=== PATIENT | female | born 1980 | race Hispanic/Latino ===

== ENCOUNTER 2017-10-09 11:58 | Emergency (ER) | payer BC ==
[2017-10-09] MEDS ORDERED: ONDANSETRON ODT 4 MG TAB ONE (13:04)
[2017-10-09] MEDS ORDERED: DICYCLOMINE HCL 10 MG/ML 2ML AMP IM ONE (13:04)
== END 2017-10-09 15:18 | disposition home or self-care (01) ==
LOC: EDH 11:58
DX: R19.7 Diarrhea, unspecified (principal); I10 Essential (primary) hypertension; M19.90 Unspecified osteoarthritis, unspecified site; Z88.8 Allergy status to other drugs, medicaments and biological substances
CPT/HCPCS: 74176; 96372; 99284; J0500

== ENCOUNTER → 2017-11-13 | Outpatient (CLI) | payer BC | END | disposition home or self-care (01) | LOC: RAH 07:54 | PROVIDERS: ATTEND Internal Medicine Gastroenterology | DX: R94.5 Abnormal results of liver function studies (principal) | CPT/HCPCS: 76700 ==

== ENCOUNTER → 2017-12-31 | Outpatient (CLI) | payer BC | END | disposition home or self-care (01) | LOC: RAH 09:47 | PROVIDERS: ATTEND Orthopaedic Surgery | DX: S83.281A Other tear of lateral meniscus, current injury, right knee, initial encounter (principal); S83.241A Other tear of medial meniscus, current injury, right knee, initial encounter; X58.XXXA Exposure to other specified factors, initial encounter; Y93.89 Activity, other specified; Y92.89 Other specified places as the place of occurrence of the external cause; Y99.8 Other external cause status | CPT/HCPCS: 73721 ==

== ENCOUNTER → 2018-01-04 | Outpatient (CLI) | payer BC | END | disposition home or self-care (01) | LOC: RAH 07:59 | PROVIDERS: ATTEND Orthopaedic Surgery | DX: S83.242A Other tear of medial meniscus, current injury, left knee, initial encounter (principal); X58.XXXA Exposure to other specified factors, initial encounter; Y93.89 Activity, other specified; Y92.89 Other specified places as the place of occurrence of the external cause; Y99.8 Other external cause status | CPT/HCPCS: 73721 ==

== ENCOUNTER → 2018-04-26 | Outpatient (CLI) | payer BC | END | disposition home or self-care (01) | LOC: RAH 13:10 | PROVIDERS: ATTEND Otolaryngology Plastic Surgery within the Head & Neck | DX: E04.2 Nontoxic multinodular goiter (principal); I10 Essential (primary) hypertension; E78.5 Hyperlipidemia, unspecified | CPT/HCPCS: 76536 ==

== ENCOUNTER 2018-07-30 20:09 | Inpatient (IN) | payer BC | END 2018-08-03 12:45 | disposition home or self-care (01) | LOC: EDH 20:09 → EDHIP 22:51 → 3BH 07-31 21:43 | DX: R07.89 Other chest pain (principal); K76.0 Fatty (change of) liver, not elsewhere classified; R09.1 Pleurisy; M45.9 Ankylosing spondylitis of unspecified sites in spine; M19.90 Unspecified osteoarthritis, unspecified site; F32.9 Major depressive disorder, single episode, unspecified; F41.9 Anxiety disorder, unspecified ==

== ENCOUNTER → 2019-03-18 | Outpatient (CLI) | payer BC ==
[~2019-03-18] MED LIST: GADODIAMIDE 10 MMOL/20 ML VIAL IV ONE; LIFI1DRO OU; TOPI25CA13 PO
== END | disposition home or self-care (01) ==
LOC: RAH 11:01
PROVIDERS: ATTEND Internal Medicine Gastroenterology
DX: D18.09 Hemangioma of other sites (principal); D18.1 Lymphangioma, any site; Z90.49 Acquired absence of other specified parts of digestive tract
CPT/HCPCS: 74183; A9579

== ENCOUNTER → 2019-09-15 | Outpatient (CLI) | payer BC ==
[~2019-09-15] MED LIST changes: -GADODIAMIDE 10 MMOL/20 ML VIAL IV ONE
== END | disposition home or self-care (01) ==
LOC: RAH 13:52
PROVIDERS: ATTEND Internal Medicine Gastroenterology
DX: D73.4 Cyst of spleen (principal); Z90.49 Acquired absence of other specified parts of digestive tract
CPT/HCPCS: 76700

== ENCOUNTER 2020-11-19 08:24 | Day surgery (SDC) | payer BC ==
[2020-11-12 14:51] LABS: BASOPHILS % (AUTO) 0.5 % (0.0-5.0); EOSINOPHILS % (AUTO) 2.3 % (0.0-8.0); HEMATOCRIT 41.3 % (36-48); LYMPHOCYTES % (AUTO) 32.9 % (21.0-51.0); MEAN CORPUSCULAR HEMOGLOBIN 28.9 pg (27.0-33.0); MEAN CORPUSCULAR HGB CONC 33.9 g/dL (32.0-36.0); MEAN CORPUSCULAR VOLUME 85.2 fL (79-99); MONOCYTES % (AUTO) 6.7 % (3.0-13.0); NEUTROPHILS % (AUTO) 57.3 % (40.0-77.0); PLATELET COUNT (AUTO) 237 K/uL (130-400); RED BLOOD CELL COUNT(AUTO) 4.85 MIL/uL (4.00-5.50); RED CELL DISTRIBUTION WIDTH 13.1 % (11.0-15.5); WHITE BLOOD COUNT (AUTO) 6.6 K/uL (4.8-10.8)
[2020-11-12 14:58] LABS: CREATININE 0.8 mg/dL (0.5-1.5); POTASSIUM 3.5 mmol/L (3.5-5.1)
[2020-11-18 14:58] VITALS: BP 136/79
[2020-11-19] VITALS (16 sets, daily range): BP systolic 105–128; BP diastolic 51–81
[~2020-11-19] VITALS: Ht 157.5 cm; Wt 70.7 kg
[~2020-11-19 08:24] MED LIST changes: +CEFAZOLIN SODIUM 1 GM VIAL IVP SCH; -LIFI1DRO OU; +SODIUM CHLORIDE 0.9% 500ML 500 ML IV SCH; -TOPI25CA13 PO
[2020-11-19] MEDS ORDERED: BUPIVACAINE/PF 0.5% 30ML VIAL ONE (08:55)
[2020-11-19] MEDS ORDERED: LIDOCAINE PF 2% 5ML ABBOJECT ONE (09:05)
[2020-11-19] MEDS ORDERED: ROCURONIUM 10MG/1ML SYR 10 MG/ML ML ONE (09:06)
[2020-11-19] MEDS ORDERED: MIDAZOLAM HCL 1 MG/ML 2ML VIAL ONE (09:06)
[2020-11-19] MEDS ORDERED: PROPOFOL 10 MG/ML 20ML VIAL IV ONE (09:06)
[2020-11-19] MEDS ORDERED: LACTATED RINGERS 1000ML 1,000 ML IV ONE (09:07)
[2020-11-19] MEDS ORDERED: CLINDAMYCIN 600 MG/D5% WATER 50 ML IV ONE (09:11)
[2020-11-19] MEDS ORDERED: FENTANYL CITRATE PF 50 MCG/1 ML 2ML VIAL ONE (09:17)
[2020-11-19] MEDS ORDERED: ONDANSETRON HCL 4 MG/2 ML VIAL ONE (09:45)
[2020-11-19] MEDS ORDERED: NEOSTIGMINE 5MG/5ML SYR IV ONE (09:45)
[2020-11-19] MEDS ORDERED: PHENYLEPHRINE HCL 10 MG/ML 1ML VIAL IV ONE (09:45)
[2020-11-19] MEDS ORDERED: GLYCOPYRROLATE 1 MG/5 ML SYRINGE ONE (09:45)
== END 2020-11-19 12:15 | disposition home or self-care (01) ==
LOC: DAH 08:24
PROVIDERS: ATTEND Surgery
DX: R10.31 Right lower quadrant pain (principal); Z20.822 Contact with and (suspected) exposure to COVID-19; N73.6 Female pelvic peritoneal adhesions (postinfective); M79.7 Fibromyalgia; Z98.51 Tubal ligation status; Z98.890 Other specified postprocedural states; Z90.49 Acquired absence of other specified parts of digestive tract; Z90.710 Acquired absence of both cervix and uterus; Z83.3 Family history of diabetes mellitus; Z82.49 Family history of ischemic heart disease and other diseases of the circulatory system; Z82.3 Family history of stroke; Z79.899 Other long term (current) drug therapy
CPT/HCPCS: 44970; 49329; S2900; 36415; 80048; 85025; 93005; A4344; C9803; J2001; J2250; J2370; J2405; J2704; J2710; J3010; J3490; J7030; J7120; U0003

== ENCOUNTER → 2021-03-11 | Outpatient (CLI) | payer BC | END | disposition home or self-care (01) | LOC: RAH 12:43 | PROVIDERS: ATTEND Internal Medicine | DX: S90.122A Contusion of left lesser toe(s) without damage to nail, initial encounter (principal); X58.XXXA Exposure to other specified factors, initial encounter; Y93.89 Activity, other specified; Y92.89 Other specified places as the place of occurrence of the external cause; Y99.8 Other external cause status | CPT/HCPCS: 73660 ==

== ENCOUNTER 2021-10-29 09:23 | Emergency (ER) | payer BC ==
[~2021-10-29] VITALS: Ht 157.5 cm; Wt 76.2 kg
[2021-10-29 11:00] VITALS: BP 134/74
== END 2021-10-29 11:01 | disposition home or self-care (01) ==
LOC: EDH 09:23
DX: S63.502A Unspecified sprain of left wrist, initial encounter (principal); M67.432 Ganglion, left wrist; Z88.6 Allergy status to analgesic agent; Z90.49 Acquired absence of other specified parts of digestive tract; X58.XXXA Exposure to other specified factors, initial encounter; Y93.89 Activity, other specified; Y92.89 Other specified places as the place of occurrence of the external cause; Y99.8 Other external cause status
CPT/HCPCS: 73110

== ENCOUNTER → 2022-08-29 | Outpatient (CLI) | payer BC ==
[2022-08-29 09:42] LABS: CREATININE 0.7 mg/dL (0.5-1.5)
== END | disposition home or self-care (01) ==
LOC: LAB 08:24
PROVIDERS: ATTEND Internal Medicine Gastroenterology
DX: R10.9 Unspecified abdominal pain (principal)
CPT/HCPCS: 36415; 82565; 84520

== ENCOUNTER → 2022-08-31 | Outpatient (CLI) | payer BC ==
[~2022-08-31] MED LIST changes: -CEFAZOLIN SODIUM 1 GM VIAL IVP SCH; +IOHEXOL 350 MG/ML 100ML INFUS..BTL IV ONE; -SODIUM CHLORIDE 0.9% 500ML 500 ML IV SCH
== END | disposition home or self-care (01) ==
LOC: RAH 09:37
PROVIDERS: ATTEND Internal Medicine Gastroenterology
DX: M47.815 Spondylosis without myelopathy or radiculopathy, thoracolumbar region (principal); I25.10 Atherosclerotic heart disease of native coronary artery without angina pectoris; R10.9 Unspecified abdominal pain
CPT/HCPCS: 74178; Q9967

== ENCOUNTER 2023-04-08 18:31 | Emergency (ER) | payer BC ==
[~2023-04-08] VITALS: Ht 157.5 cm; Wt 77.1 kg
[2023-04-08 18:32] VITALS: BP 162/110; PULSE 86; RESP 20
[2023-04-08 19:09] LABS: BASOPHILS # (AUTO) 0.02 K/uL (0.00-0.20); BASOPHILS % (AUTO) 0.3 % (0.0-5.0); EOSINOPHILS # (AUTO) 0.17 K/uL (0.00-0.70); EOSINOPHILS % (AUTO) 2.7 % (0.0-8.0); HEMATOCRIT 40.1 % (36-48); IMMATURE GRANULOCYTE ABSOLUTE 0.02 K/uL (0-1); LYMPHOCYTES # (AUTO) 2.7 K/uL (1.0-4.8); LYMPHOCYTES % (AUTO) 42.1 % (21.0-51.0); MEAN CORPUSCULAR HEMOGLOBIN 28.6 pg (27.0-33.0); MEAN CORPUSCULAR HGB CONC 34.2 g/dL (32.0-36.0); MEAN CORPUSCULAR VOLUME 83.7 fL (79-99); MONOCYTES # (AUTO) 0.5 K/uL (0.1-1.0); MONOCYTES % (AUTO) 8.2 % (3.0-13.0); NEUTROPHILS # (AUTO) 2.9 K/uL (1.8-7.7); NEUTROPHILS % (AUTO) 46.4 % (40.0-77.0); PLATELET COUNT (AUTO) 231 K/uL (130-400); RED BLOOD CELL COUNT(AUTO) 4.79 MIL/uL (4.00-5.50); RED CELL DISTRIBUTION WIDTH 12.4 % (11.0-15.5); WHITE BLOOD COUNT (AUTO) 6.3 K/uL (4.8-10.8)
[2023-04-08 19:22] LABS: CREATININE 0.8 mg/dL (0.5-1.5); POTASSIUM 3.4 mmol/L (3.5-5.1)
[2023-04-08 19:26] LABS: BILIRUBIN,TOTAL 0.3 mg/dL (0.2-1.0); TOTAL PROTEIN, SERUM 7.5 g/dL (6.0-8.3)
[2023-04-08 19:42] LABS: APPEARANCE,URINE CLEAR (CLEAR); BILIRUBIN,URINE NEGATIVE (NEGATIVE); COLOR,URINE LIGHT-YELLOW (YELLOW); GLUCOSE, URINE (UA) NEGATIVE (NEGATIVE); KETONES,URINE NEGATIVE (NEGATIVE); LEUKOCYTE ESTERASE ,URINE NEGATIVE Leu/uL (NEGATIVE); NITRATE,URINE NEGATIVE (NEGATIVE); OCCULT BLOOD,URINE NEGATIVE (NEGATIVE); PROTEIN,URINE NEGATIVE (NEGATIVE); UROBILINOGEN,URINE 0.2 mg/dL (0.2-1.0)
[2023-04-08 19:47] LABS: ADD UA MICROSCOPIC NO
[2023-04-08] MEDS ORDERED: KCL 20 MEQ ERTAB PO ONE (20:00)
[2023-04-08] MEDS ORDERED: LIDOCAINE HCL 2% VISCOUS 15 ML UDCUP PO ONE (20:30)
[2023-04-08] MEDS ORDERED: MAG/ALUM/SIMETH 30 ML UDCUP PO ONE (20:30)
[2023-04-08] MEDS ORDERED: ACETAMINOPHEN 325 MG TAB PO ONE (20:30)
[2023-04-08] MEDS ORDERED: OMEP40CA21 PO (21:50)
[2023-04-08] MEDS ORDERED: DICY10 PO (21:50)
== END 2023-04-08 22:32 | disposition home or self-care (01) ==
LOC: EDH 18:31
DX: R10.12 Left upper quadrant pain (principal); Z90.49 Acquired absence of other specified parts of digestive tract; Z90.710 Acquired absence of both cervix and uterus; Z88.8 Allergy status to other drugs, medicaments and biological substances
CPT/HCPCS: 36415; 71046; 80053; 81003; 83690; 85025; 93005

== ENCOUNTER 2023-11-28 18:03 | Emergency (ER) | payer BC ==
[~2023-11-28] VITALS: Ht 157.5 cm; Wt 77.1 kg
[~2023-11-28 18:03] MED LIST changes: +DICY10 PO; -IOHEXOL 350 MG/ML 100ML INFUS..BTL IV ONE; +OMEP40CA21 PO
[2023-11-28 19:14] LABS: CREATININE 0.7 mg/dL (0.5-1.0); POTASSIUM 3.5 mmol/L (3.5-5.1)
[2023-11-28 19:17] LABS: BASOPHILS # (AUTO) 0.02 K/uL (0.00-0.20); BASOPHILS % (AUTO) 0.3 % (0.0-5.0); EOSINOPHILS # (AUTO) 0.17 K/uL (0.00-0.70); EOSINOPHILS % (AUTO) 2.4 % (0.0-8.0); HEMATOCRIT 41.6 % (36-48); IMMATURE GRANULOCYTE ABSOLUTE 0.01 K/uL (0-1); LYMPHOCYTES # (AUTO) 2.6 K/uL (1.0-4.8); MEAN CORPUSCULAR HEMOGLOBIN 29.7 pg (27.0-33.0); MEAN CORPUSCULAR HGB CONC 34.4 g/dL (32.0-36.0); MEAN CORPUSCULAR VOLUME 86.3 fL (79-99); MONOCYTES # (AUTO) 0.6 K/uL (0.1-1.0); MONOCYTES % (AUTO) 7.6 % (3.0-13.0); NEUTROPHILS # (AUTO) 3.9 K/uL (1.8-7.7); NEUTROPHILS % (AUTO) 53.6 % (40.0-77.0); PLATELET COUNT (AUTO) 230 K/uL (130-400); RED BLOOD CELL COUNT(AUTO) 4.82 MIL/uL (4.00-5.50); RED CELL DISTRIBUTION WIDTH 12.8 % (11.0-15.5); WHITE BLOOD COUNT (AUTO) 7.2 K/uL (4.8-10.8)
[2023-11-28 19:19] LABS: ALBUMIN 3.9 g/dL (3.5-5.0); BILIRUBIN,TOTAL 0.4 mg/dL (0.2-1.0); TOTAL PROTEIN, SERUM 7.8 g/dL (6.0-8.3)
[2023-11-28] MEDS: AMLODIPINE 5 MG TAB PO ONE (21:27)
[2023-11-28] MEDS: ONDANSETRON ODT 4MG TAB SL ONE (21:45)
[2023-11-28] MEDS: KETOROLAC 60 MG VIAL (30MG/ML) IM ONE (22:52)
[2023-11-28] MEDS: SUMATRIPTAN SUCCINATE 6 MG/VIAL 0.5ML SQ SCH (22:52)
[2023-11-28] MEDS: ALPRAZOLAM 0.25 MG TABLET PO ONE (22:52)
[2023-11-28 23:42] VITALS: BP 138/100; PULSE 70; RESP 18; O2SAT 100
== END 2023-11-29 00:47 | disposition home or self-care (01) ==
LOC: EDH 18:03
DX: G43.909 Migraine, unspecified, not intractable, without status migrainosus (principal); M79.7 Fibromyalgia; Z79.899 Other long term (current) drug therapy; Z88.6 Allergy status to analgesic agent; Z90.49 Acquired absence of other specified parts of digestive tract; Z90.710 Acquired absence of both cervix and uterus
CPT/HCPCS: 99284; 96374; 70450; 71045; 84484; 80053; 85025; 36415; 93005; J3030; J1885

== ENCOUNTER → 2024-02-25 | Outpatient (CLI) | payer BC | END | disposition home or self-care (01) | LOC: RAH 14:33 | PROVIDERS: ATTEND Internal Medicine | DX: Z01.818 Encounter for other preprocedural examination (principal) | CPT/HCPCS: 71045 ==

== ENCOUNTER 2024-03-05 06:55 | Day surgery (SDC) | payer BC ==
[2024-03-04 09:03] VITALS: BP 160/80; PULSE 67; RESP 18
[2024-03-04 09:20] LABS: ALBUMIN 3.9 g/dL (3.5-5.0); BILIRUBIN,TOTAL 0.4 mg/dL (0.2-1.0); CREATININE 0.8 mg/dL (0.5-1.0); POTASSIUM 4.7 mmol/L (3.5-5.1); TOTAL PROTEIN, SERUM 7.7 g/dL (6.0-8.3)
[2024-03-05] VITALS (21 sets, daily range): BP systolic 117–150; BP diastolic 63–91; PULSE 71–88; RESP 9–20
[~2024-03-05] VITALS: Ht 157.5 cm; Wt 79.1 kg
[~2024-03-05 06:55] MED LIST changes: -DICY10 PO; +LOSA25TA41 PO; +NADO20TA3 PO; -OMEP40CA21 PO
[2024-03-05] MEDS ORDERED: GLYCOPYRROLATE 0.2 MG/ML 5 ML VIAL ONE (07:32)
[2024-03-05] MEDS ORDERED: dexaMETHasone SOD PHOSPHATE 10MG/ML 1ML VIAL ONE (07:32)
[2024-03-05] MEDS ORDERED: MIDAZOLAM HCL 1 MG/ML 2ML VIAL ONE (07:32)
[2024-03-05] MEDS ORDERED: LIDOCAINE PF 100MG/5ML (2%) SYRINGE 5ML ONE (07:32)
[2024-03-05] MEDS ORDERED: SUCCINYLCHOLINE CHLORIDE 20 MG/ML 10 ML VIAL ONE (07:32)
[2024-03-05] MEDS ORDERED: ONDANSETRON 4MG INJ ONE (07:32)
[2024-03-05] MEDS ORDERED: proPOFol 10 MG/ML 20ML VIAL IV ONE ×2 (07:32→08:13)
[2024-03-05] MEDS ORDERED: NEOSTIGMINE METHYLSULFATE 1MG/ML IV ONE (07:32)
[2024-03-05] MEDS ORDERED: rocuRONium bROMide 10MG/1ML 5ML VL ONE ×2 (07:33→09:09)
[2024-03-05] MEDS ORDERED: FENTanyl CITRate PF 50 MCG/1 ML 2ML VIAL ONE (07:33)
[2024-03-05] MEDS ORDERED: BUPIvacaine/PF 0.25% 30ML VIAL IJ ONE (07:34)
[2024-03-05] MEDS: SCOPOLAMINE HYDROBROMIDE 1 EACH ADH..PATCH TD ONE (07:56)
[2024-03-05] MEDS: PHENAZOPYRIDINE HCL 200 MG TABLET ONE (07:57)
[2024-03-05] MEDS: dexaMETHasone SOD PHOSPHATE 4 MG/ML 1ML VIAL ONE (07:57)
[2024-03-05] MEDS: LACTATED RINGERS 1000ML 1,000 ML IV ONE (07:58)
[2024-03-05] MEDS ORDERED: FENTanyl CITRate PF 50 MCG/1 ML 5ML AMP IV ONE (09:04)
[2024-03-05] MEDS: BUPIvacaine/PF 0.25% 30ML VIAL IJ ONE ×2 (09:09)
[2024-03-05] MEDS ORDERED: PHENYLEPHRINE HCL 10 MG/ML 1ML VIAL IV ONE (10:54)
[2024-03-05] MEDS: ONDANSETRON 4MG INJ ONE (12:24)
[2024-03-05] MEDS: acetaMINOPHEN 1,000 MG/100 ML VIAL IV ONE (12:24)
[2024-03-05] MEDS: MEPERIDINE-PF 25 MG/ML SYG ONE (12:25)
[2024-03-05] MEDS: MORPHINE 10 MG SYG IM ONE (13:35)
== END 2024-03-05 15:10 | disposition home or self-care (01) ==
LOC: DAH 06:55
PROVIDERS: ATTEND Obstetrics & Gynecology
DX: N83.201 Unspecified ovarian cyst, right side (principal); E89.41 Symptomatic postprocedural ovarian failure; N80.121 Deep endometriosis of right ovary; N32.89 Other specified disorders of bladder; R10.2 Pelvic and perineal pain; I10 Essential (primary) hypertension; E66.9 Obesity, unspecified; M19.90 Unspecified osteoarthritis, unspecified site; K21.9 Gastro-esophageal reflux disease without esophagitis; Z88.1 Allergy status to other antibiotic agents; Z88.8 Allergy status to other drugs, medicaments and biological substances; F41.9 Anxiety disorder, unspecified; F32.A Depression, unspecified; M79.7 Fibromyalgia; G89.29 Other chronic pain; Z79.899 Other long term (current) drug therapy; Z68.31 Body mass index [BMI] 31.0-31.9, adult
CPT/HCPCS: 80053; 84703; 86850; 86900; 86901; 36415; 58661; 88305; A6260; J1100 ×2; A4510; A4600; S2900; G0168; A4663; J7030; A4215 ×3; A4344; C1765; J7120; J3010 ×2; J0330; J0665 ×2; J3490 ×3; J2001; J2250; J2704 ×2; J2405 ×2; J2710; J2175; J2371; A4649 ×2; A4223; A4222; A4221

== ENCOUNTER 2024-11-20 15:27 | Emergency (ER) | payer BC ==
[~2024-11-20] VITALS: Ht 157.5 cm; Wt 78.5 kg
[~2024-11-20 15:27] MED LIST changes: -NADO20TA3 PO; +NADO20TA36 PO
[2024-11-20 16:15] LABS: BASOPHILS # (AUTO) 0.02 K/uL (0.00-0.20); BASOPHILS % (AUTO) 0.3 % (0.0-5.0); EOSINOPHILS # (AUTO) 0.12 K/uL (0.00-0.70); EOSINOPHILS % (AUTO) 1.7 % (0.0-8.0); HEMATOCRIT 40.8 % (36-48); IMMATURE GRANULOCYTE ABSOLUTE 0.02 K/uL (0-1); MEAN CORPUSCULAR HEMOGLOBIN 29.1 pg (27.0-33.0); MEAN CORPUSCULAR HGB CONC 33.8 g/dL (32.0-36.0); MEAN CORPUSCULAR VOLUME 85.9 fL (79-99); MONOCYTES # (AUTO) 0.5 K/uL (0.1-1.0); MONOCYTES % (AUTO) 7.1 % (3.0-13.0); NEUTROPHILS # (AUTO) 4.3 K/uL (1.8-7.7); NEUTROPHILS % (AUTO) 61.6 % (40.0-77.0); PLATELET COUNT (AUTO) 233 K/uL (130-400); RED BLOOD CELL COUNT(AUTO) 4.75 MIL/uL (4.00-5.50); RED CELL DISTRIBUTION WIDTH 12.7 % (11.0-15.5)
[2024-11-20 16:21] LABS: CREATININE 0.8 mg/dL (0.5-1.0); POTASSIUM 3.5 mmol/L (3.5-5.1)
[2024-11-20 16:25] LABS: INR 0.97 (0.85-1.15); PROTHROMBIN TIME 10.3 SEC (9.6-11.6)
--- NOTE | 2024-11-20 16:25 | ERN ---
General Chief Complaint: Other Problems Stated Complaint: JAW PAIN Time Seen by MD: 15:34 History of Present Illness Initial Comments 43-year-old female brought in by EMS from [place] [facility] specialist for hypertension. Patient reports she has been feeling some elevated heart rate and some jaw pain. She feels jaw tenderness in the left side mostly with movement and palpation. No fevers vomiting chest pain dyspnea. She was [facility] the [facility] for a follow up. She had her blood pressure taken at the office and her blood pressure was found to be elevated 175/122 and 184/103. Patient was sent to the ER for evaluation for cardiac disease. Allergies: Coded Allergies: naproxen (Unverified Allergy, Severe, SWELLING, 04/23/17) adhesive tape (Unverified Allergy, Unknown, 03/04/24) peach (Unverified Allergy, Unknown, 11/18/20) vancomycin (Unverified Allergy, Unknown, 03/04/24) Home Meds Reported Medications Nadolol (Nadolol) 20 Mg Tablet, 20 MG PO HS, TAB 03/04/24 Losartan Potassium (Losartan Potassium) 25 Mg Tablet, 25 MG PO AM, TAB 03/04/24 Past Medical History Past Medical History: GERD, High Cholesterol, Other Medical History Other: MITRAL VALVE PROLAPSE. SINUS TACHYCARDIA, HIATAL HERNIA Past Surgical History: Appendectomy, Hysterectomy, Cholecystectomy, Other Surgical History Other: TUBAL LIGATION, UNILATERAL SALPINGO-OOPHERECTOMY Family History Family History: HTN Social History Social History: Negative, Lives with family, Other Female( History) History: Not Applicable ROS Dictation CONSTITUTIONAL: No chills, no fever, no weakness, no diaphoresis, no malaise. HEAD/FACE: No signs of trauma. EENT: No eye pain, no blurred vision, no tearing, no double vision, no ear pain, no ear discharge, no nose pain, no nasal congestion, no throat pain, no throat swelling, no mouth pain. RESPIRATORY: No cough, no orthopnea, no SOB, no stridor, no wheezing. CARDIOVASCULAR: No chest pain, no edema, no palpitations, no syncope. GASTROINTESTINAL/ABDOMINAL: No abdominal pain, no constipation, no diarrhea, no nausea, no vomiting. GENITOURINARY: No abnormal discharge, no dysuria, no frequent urination, no hematuria. No complaints of pain in the genitals. MUSCULOSKELETAL: Left face pain/jaw pain INTEGUMENTARY: No change in color, no change in hair/nails, no dryness, no lesion, no lumps, no rash. NEUROLOGICAL/PSYCH: No anxiety, not depressed, no emotional problem, no headache, no numbness, no pre-existing deficit, no history of seizures, no tremors, no weakness. HEMATOLOGIC/LYMPHATIC: Not anemic, no history of blood clots, no apparent bleeding, no bruising, glands not swollen. All Systems Negative, Except as Noted. Physical Exam Physical Exam Dictation VITAL SIGNS: Reviewed. GENERAL APPEARANCE: Alert, oriented x3, no acute distress. HEAD AND FACE: Non-traumatic. EYES: PERRL, pink conjunctivas, eyelid no trauma, anterior chamber clear. EARS: Pinnas intact and no signs of trauma or erythema. Ear canals clear and no discharge. TMs no erythema. NOSE: No discharge, no bleeding. OROPHARYNX: Mouth normal, teeth no caries, tongue pink. Pharynx clear, no erythema. Tonsils no exudates, no abscesses noted. Mucous membrane moist. NECK: Supple, non-tender, no thyromegaly, no masses, no JVD, no bruits. BREAST: Deferred. CHEST: No tenderness, no crepitus, no paradoxical movement, no retractions. LUNGS: Clear, well-ventilated, symmetric, no rales, no wheezing, no rhonchi, no stridor, good breath sounds bilaterally. HEART: Regular rate, regular rhythm, no murmur, no gallops. VASCULAR: No peripheral edema. ABDOMEN: Soft, positive bowel sounds, nondistended, no guarding, nontender, no rebound, no masses no hepatomegaly, no splenomegaly, no Sullivan's sign, no hernias. RECTAL: Deferred. GENITAL: Deferred. NEUROLOGICAL: Normal speech, gross motor function intact, gross sensory function intact. MUSCULOSKELETAL: Neck nontender, full range of motion, back nontender, full range of motion. EXTREMITIES: Nontender, full range of motion. SKIN: Color pink, dry, no turgor, no rash, no lacerations, no abrasions, no contusions. LYMPHATICS: Deferred. Results Laboratory and Microbiology Lab and Micro Result Laboratory Tests Test 11/20/24 16:00 11/20/24 17:06 White Blood Count 7.0 K/uL (4.8-10.8) Red Blood Count 4.75 MIL/uL (4.00-5.50) Hemoglobin 13.8 g/dL (12.0-16.0) Hematocrit 40.8 % (36-48) Mean Corpuscular Volume 85.9 fL (79-99) Mean Corpuscular Hemoglobin 29.1 pg (27.0-33.0) Mean Corpuscular Hemoglobin Concent 33.8 g/dL (32.0-36.0) Red Cell Distribution Width 12.7 % (11.0-15.5) Platelet Count 233 K/uL (130-400) Mean Platelet Volume 10.8 fL (7.5-10.5) H Immature Granulocyte % (Auto) 0.3 % (0-1) Neutrophils (%) (Auto) 61.6 % (40.0-77.0) Lymphocytes (%) (Auto) 29.0 % (21.0-51.0) Monocytes (%) (Auto) 7.1 % (3.0-13.0) Eosinophils (%) (Auto) 1.7 % (0.0-8.0) Basophils (%) (Auto) 0.3 % (0.0-5.0) Neutrophils # (Auto) 4.3 K/uL (1.8-7.7) Lymphocytes # (Auto) 2.0 K/uL (1.0-4.8) Monocytes # (Auto) 0.5 K/uL (0.1-1.0) Eosinophils # (Auto) 0.12 K/uL (0.00-0.70) Basophils # (Auto) 0.02 K/uL (0.00-0.20) Absolute Immature Granulocyte (auto 0.02 K/uL (0-1) Nucleated Red Blood Cells 0.0 % (0.0-0.19) Prothrombin Time 10.3 SEC (9.6-11.6) Prothromb Time International Ratio 0.97 (0.85-1.15) Sodium Level 140 mmol/L (136-145) Potassium Level 3.5 mmol/L (3.5-5.1) Chloride Level 104 mmol/L (101-111) Carbon Dioxide Level 29 mmol/L (21-32) Blood Urea Nitrogen 7 mg/dL (7-18) Creatinine 0.8 mg/dL (0.5-1.0) Glomerular Filtration Rate Calc 93 mL/min (>90) Random Glucose 90 mg/dL (70-105) Total Calcium 8.7 mg/dL (8.5-10.1) Magnesium Level 1.90 mg/dL (1.80-2.40) Total Creatine Kinase 38 U/L (21-232) # Troponin I High Sensitivity 5 ng/L (4-50) 6 ng/L (4-50) B-Type Natriuretic Peptide 20 pg/mL (0-100) MDM CC: HTN, jaw pain Historian: patient Comorbidities: sick sinus syndrome, tachycardia Limitations by social determinates of health: none Ddx: ACS, hypertensive urgency, kidney disease EKG sinus rhythm, rate of 61, normal axis, good R-wave progression, intervals are stable. No STEMI. Independently interpreted by me. Initial blood pressure elevated 178/170 seen. This did improve ER after tr eatment. Repeat blood pressure 148/87. Other vital signs stable. labs (independently ordered and interpreted by me ): CBC is normal. Metabolic panel is normal. Magnesium normal. CK normal. Troponin x2 normal. BNP normal. CXR (independently interpreted by me): No focal infiltrates cardiomegaly or pleural effusions. Treatment in ED: 1 L normal saline, 20 mg IV hydralazine Based on the patient's presentation I have low suspicion for any life threats. She has a low heart score with two normal troponins. The workup is unremarkable. He was no chest pains. No signs of hypertensive emergency, no signs of end-organ damage. She received some hydralazine and her blood pressure improved. She was asymptomatic currently. She reports that this has happened before, I suspect she may have hypertension. We will start on amlodipine 5 mg daily and we will recommend that she monitors her blood pressure at home and follows up with Dr. Monreal as an outpatient. ED Course Orders Procedure Category Date Status Time Cbc With Differential LAB 11/20/24 Complete 15:35 Prothrombin Time With LAB 11/20/24 Complete INR 15:35 B-Type Natriuretic LAB 11/20/24 Complete Peptide 15:35 Chest 1vw RAD 11/20/24 Resulted 15:35 12 Lead Ekg Tracing- EKG 11/20/24 Complete Technical 15:35 Magnesium LAB 11/20/24 Complete 15:35 Creatine Kinase, Total LAB 5/1/25 Complete 15:35 Troponin I High LAB 11/20/24 Complete Sensitivity 15:35 Basic Metabolic Panel LAB 11/20/24 Complete 15:35 Hydralazine 20mg Inj PHA 11/20/24 Complete (Apresoline 20mg In 17:00 Troponin I High LAB 11/20/24 Complete Sensitivity 16:56 Current Medications Medications (Trade) Dose Ordered Sig/Isaak Route PRN Reason Start Time Stop Time Status Last Admin Dose Admin Hydralazine HCl (APRESOLine 20MG INJ) 20 mg ONCE ONCE IV 11/20/24 17:00 11/20/24 17:01 DC 11/20/24 17:05 Vital Signs Date Time Temp Pulse Resp B/P (MAP) Pulse Ox O2 Delivery O2 Flow Rate FiO2 11/20/24 17:27 73 14 148/87 99 Room Air* 0 21 11/20/24 16:29 68 14 177/88 97 Room Air* 0 21 11/20/24 16:03 60 14 187/103 100 Room Air* 0 21 11/20/24 15:28 98.1 67 16 178/117 96 Room Air 0 DX & DISP Disposition: Discharge Departure Impression: Primary Impression: Hypertensive urgency Condition: Stable Scripts Amlodipine Besylate (Amlodipine Besylate) 5 Mg Tablet 1 TAB PO DAILY for 60 Days, #60 TAB 0 Refills Prov: KEITH ALLEN DO 11/20/24 Additional Instructions: Your symptoms are consistent with hypertension. As we discussed, this may be chronic. Your blood pressure improved in the ER with treatment. You EKGs normal. Your chest x-ray is normal. Your blood work (CBC, BMP, magnesium, CK, troponin x2, BNP) is unremarkable. As we discussed, I recommend that you check your blood pressure once per day for the next few days. If it was above 140/90, I recommend he starts taking the amlodipine. Amlodipine is safe to take with nadolol. I recommend he follow up with your primary doctor or Dr. Monreal. Please return to the emergency department as needed. Referrals: SHERI SORIA MD (PCP) KEITH ALLEN DO November 20, 2024 16:25
--- NOTE | 2024-11-20 16:26 | EKG ---
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
[2024-11-20 16:30] LABS: MAGNESIUM 1.9 mg/dL (1.80-2.40)
[2024-11-20 16:34] LABS: B-TYPE NATRIURETIC PEPTIDE 20 pg/mL (0-100)
--- NOTE | 2024-11-20 16:55 | HMCIMG ---
CHEST 1VW HISTORY: Chest pain COMPARISON: None FINDINGS: A frontal projection of the chest was obtained. No acute pulmonary infiltrates is seen. The heart is normal in size. Mild degenerative changes are seen. No evidence of aortic calcification is seen. IMPRESSION: 1. No acute pulmonary infiltrate is seen.
[2024-11-20] MEDS: hydrALAZine 20MG/ML VIAL IV ONE (17:05)
[2024-11-20] MEDS ORDERED: AMLO-257 PO (18:08)
[2024-11-20] MEDS: 0.9%NACL 1000ML 1,000 ML IV ONE (18:11)
[2024-11-20 18:32] VITALS: BP 154/90; PULSE 82; RESP 14; TEMP 98; O2SAT 100
== END 2024-11-20 18:42 | disposition home or self-care (01) ==
LOC: EDH 15:27
DX: I16.0 Hypertensive urgency (principal); E78.00 Pure hypercholesterolemia, unspecified; I10 Essential (primary) hypertension; Z88.1 Allergy status to other antibiotic agents; Z88.6 Allergy status to analgesic agent; Z90.49 Acquired absence of other specified parts of digestive tract; Z90.710 Acquired absence of both cervix and uterus; Z98.890 Other specified postprocedural states
CPT/HCPCS: 99284; 96374; 71045; 96361; 82550; 83735; 84484 ×2; 80048; 83880; 85025; 85610; 36415; 93005; J7030; J0360

== ENCOUNTER → 2025-03-18 | Outpatient (CLI) | payer BC ==
[~2025-03-18] MED LIST changes: +AMLO-257 PO; -NADO20TA36 PO; +NADO20TA37 PO
[2025-03-18 10:43] LABS: INR 0.98 (0.85-1.15)
--- NOTE | 2025-03-18 12:30 | NUR ---
U/S GD LT THYROID BX PROCEDURE PERFORMED BY DR Mor STEWART . PUNCTURE SITE LT NECK AND PATIENT DID NOT TOLERATE PROCEDURE WELL. PATIENT C/O SEVERE PAIN TO THROAT AND CHEST. PROCEDURE STOPPED AT 1155 SPECIMEN X 1 COLLECTED AND SENT TO LAB. ASPIRATION NEEDLE REMOVED AND DRESSING APPLIED. NO BLEEDING NOTED. POST CHEST X-RAY TAKEN AND READ BY DR Mor STEWART. NO PNEUMOTHORAX SEEN. PATIENT OBSERVED FOR AN HOUR AND GIVEN ICE CHIPS FOR THROAT PAIN. TYLENOL 650MG PO GIVEN FOR PAIN. PAIN STARTED AT 8 ON PAIN SCALE. PRIOR TO DISCHARGE PAIN AT 3 ON PAIN SCALE. DISCHARGE INSTRUCTIONS GIVEN TO PATIENT AND VERBALIZED UNDERSTANDING. DISCHARGED VIA AMBULATION AT 1245. AAO X3 WITH C/O MILD PAIN TO CHEST AND ON INSPIRATION.
--- NOTE | 2025-03-18 12:37 | HMCIMG ---
Examination: Chest, 1 view Clinical history: Cough Comparison: Radiograph dated November 20, 2024 Findings: AP view of the chest is submitted. Lungs are clear. No pleural effusion or pneumothorax. Heart size and pulmonary vessels are within normal limits. Impression: No acute cardiopulmonary process. /Amery
--- NOTE | 2025-03-18 15:15 | HMCIMG ---
Clinical indication: . Ultrasound-guided biopsy of left thyroid nodule Comparison: Prior studies.. Technique: Ultrasound-guided biopsy of a left thyroid lower pole nodule. Procedure: Real-time imaging was performed and left lower lobes there is a nodule seen in the lower pole and isthmus. Under ultrasound guidance an attempt was made to a biopsy the left thyroid nodule in the lower pole near the isthmus. The lesion appears to be substernal and difficult to access. One attempt was made for biopsy. Patient complaining of pain and therefore the study was discontinued. Impression: Ultrasound-guided attempted biopsy of left thyroid lower pole nodule. The biopsy one pass was suboptimal but the specimen was sent for histology and cell block..
== END | disposition home or self-care (01) ==
LOC: RAH 09:34
PROVIDERS: ATTEND Otolaryngology
DX: E04.1 Nontoxic single thyroid nodule (principal); E07.89 Other specified disorders of thyroid; Z79.01 Long term (current) use of anticoagulants
CPT/HCPCS: 36415; 60100; 71045; 76942; 85610; 85730; 88305